=== PATIENT | male | born 1975 | race Caucasian/White ===

== ENCOUNTER → 2021-03-31 | Outpatient (CLI) | payer OTHER ==
[~2021-03-31] VITALS: Ht 180.3 cm; Wt 95.3 kg
[~2021-03-31] MED LIST: ASA81BEC PO; BENAZEPRIL-HCT1 EA10 PO; ROSUVASTATIN CA20 MG PO; VITAMIN C1000 MG PO; VITAMIN D3125 MC2 PO; VITAMIN K100 MCG PO; ZINC30 M1 PO
--- NOTE | ~2021-03-31 | P ---
[facility] [place] [address] PROCEDURE REPORT Name: DORI NUÑEZ Room #: REG Carl Randall#: [id number] Admission: 03/31/21 Attend Phys: Greg Charles Discharge: Date of : 71 Report #: [id number] THIS REPORT FOR: cc: Rakesh Trejo MD, John R. MD McElhinney, Christian C. MD ~ DOC #: [id number] cc: MD Greg Tian MD DATE OF SERVICE: 03/31/2021 PROCEDURE PERFORMED: Upper endoscopy with biopsies. HISTORY OF PRESENT ILLNESS: The patient is a 45-year-old male with a history of Gomez's esophagus diagnosed 3 years ago on upper endoscopy. He has been on daily Nexium since then. Denies any heartburn or dysphagia. No nausea or vomiting. He is here for routine followup. DESCRIPTION OF PROCEDURE: The risks and benefits of the procedure were explained to the patient, those risks including but not limited to bleeding, perforation and the risk of sedation. He understood these risks and gave informed consent. Sedation was given using propofol per Anesthesia. Next, using a standard Olympus upper endoscope, the scope was placed in the patient's mouth and advanced under direct vision through the esophagus, stomach and into the second portion of the duodenum. The larynx was normal in appearance. The upper and mid esophagus was normal. In the distal esophagus, a short segment of Gomez's was noted. Biopsies were obtained. No evidence of esophagitis or stricture. Overall, the gastric mucosa was normal. The pylorus was normal and patent. The duodenal bulb, first and second portion were all normal. The scope was then withdrawn and the procedure terminated. The patient tolerated the procedure well. IMPRESSION: 1. Short-segment Gomez's esophagus, biopsies obtained. 2. Otherwise, normal upper endoscopy. RECOMMENDATIONS: 1. Await biopsy results. 2. Repeat upper endoscopy with biopsies in 3 years. Thank you for allowing me to participate in his care. Greg Ayala MD CCM/CHANDLER/ADRIANA [facility] [address] [place] [address] PROCEDURE REPORT Name: DORI NUÑEZ Room #: REG CLCarl Randall#: [id number] Admission: 03/31/21 Attend Phys: Greg Charles Discharge: Date of : 71 Report #: [id number] By: [id number] Greg Ayala MD /nt
--- NOTE | 2021-04-02 19:07 | PATH ---
[facility] [address] [place] [address] PATHOLOGY RPT PROCEDURE Name: DORI NUÑEZ Room #: REG [facility] M.Eleonora.#: [id number] Admission: 03/31/21 Date of : 71 Discharge: Report #: [id number] Path Case #: [id number] [facility] Accession Number: [id number] . 01 Material submitted: . esophagus - BX DISTAL ESOPHAGUS. Modifiers: distal . 01 Clinical history: . HX OF BARRETTS ESOPHAGUS . 02 Diagnosis: Gastroesophageal mucosa, distal esophagus rule out Gomez's, endoscopic biopsy: - Gastric cardia-type mucosa with moderate chronic inflammation. - Squamous mucosa with mild esophagitis. - Negative for intestinal metaplasia or dysplasia. . (IUV:mml; 04/02/2021) QLM 04/02/2021 1523 Local . 02 Electronically signed: . Kenya Garcia MD, Pathologist NPI- [id number] . 01 Gross description: . Received in formalin labeled "KeylaDori miller and biopsy distal esophagus-history of Gomez's". Received are 3 mcnamara-brown soft tissue fragments ranging from 0.2-0.3 cm. The specimen is entirely submitted in cassette A1.(BLJ; 04/01/2021) BLJ/BLJ 04/01/2021 1816 Local . 02 Pathologist provided ICD-10: K29.50, K20.90 . 02 CPT . 064377 Specimen Comment: A courtesy copy of this report has been sent to [phone], [phone] Specimen Comment: [phone] Specimen Comment: Report sent to / DR MUNOZ Performed at: [address] [id number] MD Eulalio Schmitt MD Phone: [phone] Performed at: [address] [id number] [address] [address] PATHOLOGY RPT PROCEDURE Name: DORI NUÑEZ [place] Room #: REG MARLIN Randall#: [id number] Admission: 03/31/21 Date of : 71 Discharge: Report #: [id number] Path Case #: [id number] MD Kenya Garcia MD Phone: [phone]
== END | disposition home or self-care (01) ==
LOC: GI 09:17
PROVIDERS: ATTEND Specialist
DX: K22.70 Barrett's esophagus without dysplasia (principal); K29.50 Unspecified chronic gastritis without bleeding; K21.00 Gastro-esophageal reflux disease with esophagitis, without bleeding; I10 Essential (primary) hypertension; E78.00 Pure hypercholesterolemia, unspecified; F32.9 Major depressive disorder, single episode, unspecified; F41.9 Anxiety disorder, unspecified; Z98.890 Other specified postprocedural states; Z79.899 Other long term (current) drug therapy; Z87.891 Personal history of nicotine dependence; Z88.0 Allergy status to penicillin; Z91.041 Radiographic dye allergy status
CPT/HCPCS: 62110; 62900